=== PATIENT | male | born 1980 | race Two or more races ===

== ENCOUNTER 2021-07-01 09:42 | Emergency (ER) | payer MEDICAID, OTHER ==
[~2021-07-01] VITALS: Ht 180.3 cm; Wt 102.1 kg
[2021-07-01 10:55] LABS: Basophils # (auto) 0 10 ^3/uL (0-0.2); Basophils % (auto) 0.5 % (0.0-2.0); Eosinophils # (auto) 0 10 ^3/uL (0-0.8); Eosinophils % (auto) 0.5 % (0.0-7.0); Hematocrit 44.4 % (41.0-53.0); Hemoglobin 15.9 g/dL (13.5-17.5); Lymphocytes # (auto) 2.8 10 ^3/uL (0.4-5.4); Lymphocytes % (auto) 36.2 % (10.0-50.0); Mean Corpuscular Hemoglobin 32.7 pg (28.0-32.0); Mean Corpuscular Hgb Conc. 35.7 g/dL (32.0-36.0); Mean Corpuscular Volume 91.4 fL (80.0-100.0); Monocytes # (auto) 0.4 10 ^3/uL (0-1.3); Monocytes % (auto) 5.2 % (0.0-12.0); Neutrophils # (auto) 4.4 10 ^3/uL (1.6-8.6); Neutrophils % (auto) 57.6 % (37.0-80.0); Red Blood Cells 4.86 10^6/uL (4.5-5.90); Red Cell Distribution Width 12.9 % (11.8-14.3); White Blood Cell 7.6 10^3/uL (4.4-10.8)
[2021-07-01 11:24] LABS: Chloride 107 mmol/L (98-107); Potassium 3.7 mmol/L (3.5-5.1); Sodium 137 mmol/L (136-145)
[2021-07-01 11:42] LABS: Alanine Aminotransferase 50 U/L (16-61); Albumin 3.9 g/dL (3.4-5.0); Alkaline Phosphatase 59 U/L (45-117); Anion Gap 7 (5-15); Aspartate Aminotransferase 17 U/L (15-37); BUN/Creatinine Ratio 9.1; Bilirubin, Total 0.5 mg/dL (0.2-1.0); Blood Urea Nitrogen 10 mg/dL (7-18); Calcium 8.9 mg/dL (8.5-10.1); Carbon Dioxide 23 mmol/L (21-32); GFR African American 94 mL/min; GFR Non-African American 78 mL/min; Glucose 104 mg/dL (74-106)
[2021-07-01] MEDS ORDERED: methylPREDNISolone SOD SUCC 125 MG/2 ML VL IM ONE (12:30)
[2021-07-01 15:00] VITALS: BP 149/90
== END 2021-07-01 15:05 | disposition left against medical advice (07) ==
LOC: ER 09:42
DX: G51.0 Bell's palsy (principal); Z90.49 Acquired absence of other specified parts of digestive tract
CPT/HCPCS: 36415; 70450; 80053; 84484; 85025; 93005